=== PATIENT | female | born 1955 | race African-American/Black ===

== ENCOUNTER 2024-12-11 07:43 | Emergency (ER) | payer BC ==
[~2024-12-11] VITALS: Ht 157.5 cm; Wt 50.0 kg
[2024-12-11 07:50] VITALS: O2SAT 100
[2024-12-11] MEDS: IBUPROFEN 400MG TABLET PO ONE (09:18)
[2024-12-11 11:27] VITALS: BP 138/83; PULSE 62; RESP 18; TEMP 36.9; O2SAT 100
== END 2024-12-11 11:28 | disposition home or self-care (01) ==
LOC: ER 07:43
DX: M25.521 Pain in right elbow (principal); M79.631 Pain in right forearm; W22.8XXA Striking against or struck by other objects, initial encounter; Y93.89 Activity, other specified; Y92.89 Other specified places as the place of occurrence of the external cause; Y99.8 Other external cause status
CPT/HCPCS: 73080; 73090; 99284; A4565

== ENCOUNTER 2024-12-18 11:40 | Emergency (ER) | payer BC, OTHER ==
[~2024-12-18] VITALS: Ht 157.5 cm; Wt 50.0 kg
[2024-12-18 12:02] VITALS: O2SAT 98
[2024-12-18 12:48] VITALS: BP 131/69; PULSE 66; RESP 14; TEMP 36.8; O2SAT 99
== END 2024-12-18 13:18 | disposition home or self-care (01) ==
LOC: ER 11:40
DX: M25.521 Pain in right elbow (principal); Z86.018 Personal history of other benign neoplasm
CPT/HCPCS: 99282

== ENCOUNTER 2024-12-25 19:27 | Emergency (ER) | payer OTHER ==
[~2024-12-25] VITALS: Ht 160 cm; Wt 51.0 kg
[2024-12-25 20:02] VITALS: TEMP 36.9; O2SAT 100
[2024-12-26 00:30] VITALS: BP 147/73; PULSE 68; RESP 16; O2SAT 99
== END 2024-12-26 00:34 | disposition home or self-care (01) ==
LOC: ER 19:27
DX: M25.521 Pain in right elbow (principal); W22.8XXA Striking against or struck by other objects, initial encounter; Y93.9 Activity, unspecified; Y92.89 Other specified places as the place of occurrence of the external cause; Y99.8 Other external cause status
CPT/HCPCS: 73080; 99283

== ENCOUNTER 2024-12-26 16:11 | Emergency (ER) | payer OTHER ==
[~2024-12-26] VITALS: Ht 157.5 cm; Wt 50.0 kg
[2024-12-26 16:12] VITALS: BP 153/86; RESP 18; TEMP 37.1; O2SAT 99
[2024-12-26 16:17] VITALS: PULSE 76; O2SAT 99
== END 2024-12-26 17:52 | disposition home or self-care (01) ==
LOC: ER 16:11
DX: M25.521 Pain in right elbow (principal)
CPT/HCPCS: 99282

== ENCOUNTER 2025-01-10 13:12 | Emergency (ER) | payer OTHER ==
[~2025-01-10] VITALS: Ht 165.1 cm; Wt 58.0 kg
[2025-01-10 13:25] VITALS: O2SAT 98
[2025-01-10 14:17] VITALS: BP 140/85; PULSE 100; RESP 16; TEMP 36.7; O2SAT 100
== END 2025-01-10 14:19 | disposition home or self-care (01) ==
LOC: ER 13:20
DX: M25.521 Pain in right elbow (principal); Z86.018 Personal history of other benign neoplasm
CPT/HCPCS: 99282